=== PATIENT | female | born 1940 ===

== ENCOUNTER → 2018-02-23 | Outpatient (CLI) | payer MEDICARE, BC ==
--- NOTE | 2018-02-23 17:13 | Diagnostic Imaging Report ---
Indication: Pleural effusion. Technique: XRAY Chest 2v Comparison: None Findings: There is a small left pleural effusion. This is noted to layer along the lateral chest wall. No significant right-sided pleural effusion. No pneumothorax. There are linear airspace opacities in the left lower lung. And minimal patchy opacity in the right lower lung. There are degenerative changes in the spine. No acute osseous abnormality identified. Impression: Small left pleural effusion. Patchy bibasilar airspace opacities, left greater than right, possibly related to subsegmental atelectasis and/or scarring. Infectious infiltrates not excluded. Clinical correlation/follow-up recommended.
== END | disposition home or self-care (01) ==
LOC: RAD 15:45
DX: J18.9 Pneumonia, unspecified organism (principal); J90 Pleural effusion, not elsewhere classified
CPT/HCPCS: 71046